=== PATIENT | female | born 1955 | race Caucasian/White ===

== ENCOUNTER 2022-03-05 08:38 | Inpatient (IN) | payer OTHER ==
[~2022-03-05] VITALS: Ht 157.5 cm; Wt 70.1 kg
[~2022-03-05 08:38] MED LIST: AMLO2.5T2 PO; ATEN-73 PO; INSLAN SQ; INSU100I3 SQ; PRAV40TA3 PO; VICOT PO
[2022-03-05] MEDS ORDERED: ASPIRIN 325 MG TABLET PO ONE (09:00)
[2022-03-05] MEDS ORDERED: NITROGLYCERIN 0.4 MG SUBLINGUAL TABLET #25 SL ONE (09:00)
[2022-03-05] MEDS ORDERED: MORPHINE SULFATE 4 MG/ML SYRINGE IVP ONE (09:00)
[2022-03-05] MEDS ORDERED: ONDANSETRON HCL 4 MG/2 ML VIAL IVP ONE (09:00)
[2022-03-05] MEDS ORDERED: NITROGLYCERIN 2% (1 GM=INCH) PACKET TP ONE (09:00)
[2022-03-05 09:10] LABS: BASOPHILS % (AUTO) 0.5 % (0.0-2.0); EOSINOPHILS % (AUTO) 0.6 % (1.0-6.0); HEMATOCRIT 34.9 % (36-46); HEMOGLOBIN 11.4 g/dL (12.0-16.0); LYMPHOCYTES # (AUTO) 2.7 K/uL (1.0-4.8); LYMPHOCYTES % (AUTO) 15.5 % (22.0-44.0); MEAN CORPUSCULAR HEMOGLOBIN 26.3 pg (26.0-34.0); MEAN CORPUSCULAR HGB CONC 32.6 G/dL (31.0-37.0); MEAN CORPUSCULAR VOLUME 81 fL (80-100); MONOCYTES # (AUTO) 2.2 K/uL (0.1-1.0); MONOCYTES % (AUTO) 12.8 % (2.0-9.0); NEUTROPHILS # (AUTO) 12.1 K/uL (1.8-7.7); NEUTROPHILS % (AUTO) 70.6 % (40.0-70.0); PLATELET COUNT (AUTO) 203 K/uL (150-450); RED BLOOD CELL COUNT(AUTO) 4.33 MIL/uL (4.00-5.20); RED CELL DISTRIBUTION WIDTH 14.8 % (11.5-14.5)
[2022-03-05 09:35] LABS: ANION GAP 8 mmol/L (8-16); CARBON DIOXIDE 29 mmol/L (22-29); CHLORIDE 99 mmol/L (98-107); CREATININE 0.76 mg/dL (0.60-1.30); GLOMERULAR FILTR. RATE CALC > 60 mL/min (>60); GLUCOSE,RANDOM 214 mg/dL (70-110); POTASSIUM 3.9 mmol/L (3.5-5.1); SODIUM SERUM 136 mmol/L (136-145); UREA NITROGEN, BLOOD 15 mg/dL (7-18)
[2022-03-05 09:36] LABS: COVID AG,FIA SOURCE NASOPHARYNGEAL
[2022-03-05 09:43] LABS: ALANINE AMINOTRANSFERASE 22 U/L (12-78); ALBUMIN 3.2 g/dL (3.4-5.0); ALKALINE PHOSPHATASE 72 U/L (46-116); ASPARTATE AMINOTRANSFERASE 16 U/L (15-37); BILIRUBIN,TOTAL 0.7 mg/dL (0.1-1.0); LIPASE 143 U/L (73-393)
[2022-03-05 10:37] LABS: APPEARANCE,URINE HAZY (CLEAR); BILIRUBIN,URINE NEGATIVE (NEGATIVE); GLUCOSE, URINE (UA) 150-200 mg/dL (NEGATIVE); LEUKOCYTE ESTERASE ,URINE LARGE (NEGATIVE); NITRATE,URINE POSITIVE (NEGATIVE); OCCULT BLOOD,URINE SMALL (NEGATIVE); PROTEIN,URINE TRACE mg/dL (NEGATIVE); SPECIFIC GRAVITIY, URINE 1.018 (1.003-1.030)
[2022-03-05 10:44] LABS: WBC,URINE 51-100 /HPF (0-5)
[2022-03-05 10:45] LABS: BACTERIA,URINE Many /HPF (None Seen); SQUAMOUS EPITHELIAL CELL,UR Few /LPF (None Seen)
[2022-03-05] MEDS ORDERED: CefTRIAXone 1 GM/DEXTROSE 50 ML IV ONE (11:30)
[2022-03-05] MEDS ORDERED: NITROGLYCERIN 0.4 MG SUBLINGUAL TABLET #25 SL PRN (12:45)
[2022-03-05] MEDS ORDERED: ZOLPIDEM TARTRATE 5 MG TABLET PO PRN (13:15)
[2022-03-05] MEDS ORDERED: ACETAMINOPHEN 325 MG TABLET PO PRN (13:15)
[2022-03-05] MEDS ORDERED: DEXTROSE 50%-WATER 25 GM/50 ML SYRINGE IVP PRN (13:15)
[2022-03-05] MEDS ORDERED: MAGNESIUM HYDROXIDE SUSPENSION 30 ML UDCUP PO PRN (13:15)
[2022-03-05] MEDS ORDERED: BISACODYL 10 MG RECTAL RECTAL SUPPOSITORY PR PRN (13:15)
[2022-03-05 13:22] VITALS: BP 113/68
[2022-03-05 14:53] VITALS: BP 132/61
[2022-03-05] MEDS: MORPHINE SULFATE 2 MG/ML SYRINGE IVP PRN ×2 (15:38→22:15)
[2022-03-05] MEDS: ONDANSETRON HCL 4 MG/2 ML VIAL IVP PRN (15:38)
[2022-03-05] MEDS: HEPARIN SODIUM,PORCINE 5,000 UNITS/ML VIAL SQ SCH ×2 (16:00→23:50)
[2022-03-05 18:51] LABS: GLUCOMETER DEV NAME(LOC) 5N.1C; GLUCOSE,POINT OF CARE 169 MG/DL (70-110)
[2022-03-05 19:40] VITALS: BP 103/51
[2022-03-05] MEDS: DOCUSATE SODIUM 100 MG CAPSULE PO SCH (21:00)
[2022-03-05] MEDS: INSULIN GLARGINE,HUM.REC.ANLOG 100 UNITS/ML SQ SCH (21:00)
[2022-03-05] MEDS: METOPROLOL TARTRATE 25 MG TABLET PO SCH (21:00)
[2022-03-06] VITALS (7 sets, daily range): BP systolic 96–137; BP diastolic 56–87
[2022-03-06] MEDS ORDERED: SODIUM CHLORIDE 0.9% 100 ML ONE (03:42)
[2022-03-06] MEDS ORDERED: IOHEXOL 350 MG/ML 100 ML VIAL ONE (03:43)
[2022-03-06] MEDS: MORPHINE SULFATE 2 MG/ML SYRINGE IVP PRN (03:49)
[2022-03-06 07:36] LABS: CHOLESTEROL 182 mg/dL (131-200); HDL CHOLESTEROL 45 mg/dL (40-60); LDL CHOL (CALC.) 107 mg/dL (0-130); TRIGLYCERIDES 148 mg/dL (15-150)
[2022-03-06] MEDS ORDERED: REGADENOSON 0.4 MG/5 ML PF SYRINGE IVP ONE (09:30)
[2022-03-06] MEDS ORDERED: SESTAMIBI TC99M/UD ISOTOPE 1 EA INJ INJ ONE ×2 (10:00→14:00)
[2022-03-06] MEDS: DOCUSATE SODIUM 100 MG CAPSULE PO SCH ×2 (10:52→20:12)
[2022-03-06] MEDS: ASPIRIN 81 MG DR TABLET PO SCH (10:52)
[2022-03-06] MEDS: PANTOPRAZOLE SODIUM 40 MG DR TABLET PO SCH (10:52)
[2022-03-06] MEDS: HEPARIN SODIUM,PORCINE 5,000 UNITS/ML VIAL SQ SCH ×2 (10:52→16:57)
[2022-03-06] MEDS: ATORVASTATIN CALCIUM 40 MG TABLET PO SCH (10:53)
[2022-03-06] MEDS: METOPROLOL TARTRATE 25 MG TABLET PO SCH ×2 (10:53→20:12)
[2022-03-06 11:54] LABS: ANION GAP 10 mmol/L (8-16); CARBON DIOXIDE 26 mmol/L (22-29); CHLORIDE 102 mmol/L (98-107); CREATININE 0.78 mg/dL (0.60-1.30); GLOMERULAR FILTR. RATE CALC > 60 mL/min (>60); GLUCOSE,RANDOM 136 mg/dL (70-110); POTASSIUM 4.6 mmol/L (3.5-5.1); SODIUM SERUM 138 mmol/L (136-145); UREA NITROGEN, BLOOD 15 mg/dL (7-18)
[2022-03-06 12:02] LABS: GLUCOMETER DEV NAME(LOC) 5S.2B; GLUCOSE,POINT OF CARE 127 MG/DL (70-110)
[2022-03-06] MEDS: INSULIN LISPRO 100 UNITS/ML SQ PRN ×2 (12:09→20:11)
[2022-03-06] MEDS: CefTRIAXone 1 GM/DEXTROSE 50 ML IV SCH (12:11)
[2022-03-06] MEDS ORDERED: SODIUM CHLORIDE 0.9% 500 ML IV ONE (12:17)
[2022-03-06 14:19] LABS: BASOPHILS % (AUTO) 0.5 % (0.0-2.0); EOSINOPHILS % (AUTO) 0.8 % (1.0-6.0); HEMATOCRIT 32.3 % (36-46); HEMOGLOBIN 10.6 g/dL (12.0-16.0); LYMPHOCYTES # (AUTO) 1.7 K/uL (1.0-4.8); LYMPHOCYTES % (AUTO) 14.8 % (22.0-44.0); MEAN CORPUSCULAR HEMOGLOBIN 26.5 pg (26.0-34.0); MEAN CORPUSCULAR HGB CONC 32.7 G/dL (31.0-37.0); MEAN CORPUSCULAR VOLUME 81 fL (80-100); MONOCYTES # (AUTO) 1.3 K/uL (0.1-1.0); MONOCYTES % (AUTO) 11.7 % (2.0-9.0); NEUTROPHILS # (AUTO) 8.1 K/uL (1.8-7.7); NEUTROPHILS % (AUTO) 72.2 % (40.0-70.0); PLATELET COUNT (AUTO) 213 K/uL (150-450); RED BLOOD CELL COUNT(AUTO) 3.98 MIL/uL (4.00-5.20); RED CELL DISTRIBUTION WIDTH 14.5 % (11.5-14.5)
[2022-03-06] MEDS: HYDROCODONE/ACETAMINOPHEN 5-325 MG TABLET PO PRN ×2 (15:23→20:18)
[2022-03-06 20:06] LABS: GLUCOMETER DEV NAME(LOC) 5N.1C; GLUCOSE,POINT OF CARE 145 MG/DL (70-110)
[2022-03-06 20:06] LABS: GLUCOMETER DEV NAME(LOC) 5N.1C; GLUCOSE,POINT OF CARE 216 MG/DL (70-110)
[2022-03-06] MEDS: INSULIN GLARGINE,HUM.REC.ANLOG 100 UNITS/ML SQ SCH (20:09)
[2022-03-06 20:21] LABS: GLUCOMETER DEV NAME(LOC) 5N.3; GLUCOSE,POINT OF CARE 172 MG/DL (70-110)
[2022-03-07 00:18] VITALS: BP 123/66
[2022-03-07] MEDS: HEPARIN SODIUM,PORCINE 5,000 UNITS/ML VIAL SQ SCH ×3 (00:48→17:29)
[2022-03-07] MEDS: MORPHINE SULFATE 2 MG/ML SYRINGE IVP PRN ×4 (00:49→20:36)
[2022-03-07 04:04] VITALS: BP 134/55
[2022-03-07] MEDS: INSULIN LISPRO 100 UNITS/ML SQ PRN ×3 (06:15→20:41)
[2022-03-07 06:47] LABS: GLUCOMETER DEV NAME(LOC) 5N.1C; GLUCOSE,POINT OF CARE 194 MG/DL (70-110)
[2022-03-07 07:47] VITALS: BP 145/73
[2022-03-07] MEDS: DOCUSATE SODIUM 100 MG CAPSULE PO SCH ×3 (08:28→20:50)
[2022-03-07] MEDS: ASPIRIN 81 MG DR TABLET PO SCH ×2 (08:29→09:00)
[2022-03-07] MEDS: PANTOPRAZOLE SODIUM 40 MG DR TABLET PO SCH ×2 (08:29→09:00)
[2022-03-07] MEDS: METOPROLOL TARTRATE 25 MG TABLET PO SCH ×3 (08:29→20:36)
[2022-03-07] MEDS: ATORVASTATIN CALCIUM 40 MG TABLET PO SCH ×2 (08:29→09:00)
[2022-03-07] MEDS: ONDANSETRON HCL 4 MG/2 ML VIAL IVP PRN (10:49)
[2022-03-07 11:48] VITALS: BP 146/82
[2022-03-07 11:57] LABS: GLUCOMETER DEV NAME(LOC) 5N.3; GLUCOSE,POINT OF CARE 145 MG/DL (70-110)
[2022-03-07] MEDS: CefTRIAXone 1 GM/DEXTROSE 50 ML IV SCH (11:57)
[2022-03-07 15:43] VITALS: BP 128/70
[2022-03-07 19:13] VITALS: BP 130/74
[2022-03-07 19:51] LABS: GLUCOMETER DEV NAME(LOC) 5N.1C; GLUCOSE,POINT OF CARE 275 MG/DL (70-110)
[2022-03-07] MEDS: PANTOPRAZOLE SODIUM 40 MG/VIAL IVP SCH (20:35)
[2022-03-07] MEDS: INSULIN GLARGINE,HUM.REC.ANLOG 100 UNITS/ML SQ SCH (20:51)
[2022-03-07 23:05] LABS: GLUCOMETER DEV NAME(LOC) 5N.3; GLUCOSE,POINT OF CARE 167 MG/DL (70-110)
[2022-03-08 00:23] VITALS: BP 130/75
[2022-03-08 04:05] VITALS: BP 137/67
[2022-03-08] MEDS: MORPHINE SULFATE 2 MG/ML SYRINGE IVP PRN (06:28)
[2022-03-08 07:43] VITALS: BP 150/77
[2022-03-08] MEDS: HEPARIN SODIUM,PORCINE 5,000 UNITS/ML VIAL SQ SCH ×3 (08:00→09:35)
[2022-03-08 08:21] LABS: BASOPHILS % (AUTO) 0.6 % (0.0-2.0); EOSINOPHILS % (AUTO) 1.3 % (1.0-6.0); HEMATOCRIT 34.7 % (36-46); HEMOGLOBIN 11.5 g/dL (12.0-16.0); LYMPHOCYTES # (AUTO) 1.6 K/uL (1.0-4.8); LYMPHOCYTES % (AUTO) 16.6 % (22.0-44.0); MEAN CORPUSCULAR HEMOGLOBIN 26.5 pg (26.0-34.0); MEAN CORPUSCULAR VOLUME 80 fL (80-100); MONOCYTES # (AUTO) 1.1 K/uL (0.1-1.0); MONOCYTES % (AUTO) 12.2 % (2.0-9.0); NEUTROPHILS # (AUTO) 6.5 K/uL (1.8-7.7); NEUTROPHILS % (AUTO) 69.3 % (40.0-70.0); PLATELET COUNT (AUTO) 237 K/uL (150-450); RED BLOOD CELL COUNT(AUTO) 4.32 MIL/uL (4.00-5.20); RED CELL DISTRIBUTION WIDTH 14.1 % (11.5-14.5)
[2022-03-08 08:28] LABS: ANION GAP 8 mmol/L (8-16); CALCIUM, TOTAL 9.2 mg/dL (8.8-10.5); CARBON DIOXIDE 30 mmol/L (22-29); CHLORIDE 101 mmol/L (98-107); CREATININE 0.71 mg/dL (0.60-1.30); GLOMERULAR FILTR. RATE CALC > 60 mL/min (>60); GLUCOSE,RANDOM 171 mg/dL (70-110); POTASSIUM 4.3 mmol/L (3.5-5.1); SODIUM SERUM 139 mmol/L (136-145); UREA NITROGEN, BLOOD 10 mg/dL (7-18)
[2022-03-08] MEDS ORDERED: MEBROFENIN TC99M/MCL ISOTOPE 1 EA INJ INJ ONE (08:30)
[2022-03-08 08:34] LABS: ALANINE AMINOTRANSFERASE 19 U/L (12-78); ALBUMIN 2.8 g/dL (3.4-5.0); ALKALINE PHOSPHATASE 94 U/L (46-116); ASPARTATE AMINOTRANSFERASE 17 U/L (15-37); BILIRUBIN,TOTAL 0.3 mg/dL (0.1-1.0); TOTAL PROTEIN, SERUM 8.1 g/dL (6.4-8.2)
[2022-03-08] MEDS: ASPIRIN 81 MG DR TABLET PO SCH (09:00)
[2022-03-08] MEDS: METOPROLOL TARTRATE 25 MG TABLET PO SCH (09:34)
[2022-03-08] MEDS: ATORVASTATIN CALCIUM 40 MG TABLET PO SCH (09:34)
[2022-03-08] MEDS: DOCUSATE SODIUM 100 MG CAPSULE PO SCH (09:34)
[2022-03-08] MEDS: ONDANSETRON HCL 4 MG/2 ML VIAL IVP PRN (09:34)
[2022-03-08] MEDS: PANTOPRAZOLE SODIUM 40 MG DR TABLET PO SCH (09:34)
[2022-03-08] MEDS: HYDROCODONE/ACETAMINOPHEN 5-325 MG TABLET PO PRN (09:35)
[2022-03-08] MEDS: PANTOPRAZOLE SODIUM 40 MG/VIAL IVP SCH (09:42)
[2022-03-08 10:43] VITALS: BP 142/68
[2022-03-08] MEDS: CefTRIAXone 1 GM/DEXTROSE 50 ML IV SCH (12:12)
[2022-03-08 22:21] LABS: GLUCOMETER DEV NAME(LOC) 5S.1B; GLUCOSE,POINT OF CARE 145 MG/DL (70-110)
[2022-03-08 22:21] LABS: GLUCOMETER DEV NAME(LOC) 5S.1B; GLUCOSE,POINT OF CARE 176 MG/DL (70-110)
[2022-03-09] MEDS ORDERED: ISOSORBIDE MONONITRATE 30 MG ER TABLET PO SCH (09:00)
== END 2022-03-08 13:40 | disposition left against medical advice (07) | DRG 311 ==
LOC: EMS 08:47 → 5S 12:00
PROVIDERS: ADMIT Internal Medicine; ATTEND Internal Medicine
DX: I24.9 Acute ischemic heart disease, unspecified (principal); N39.0 Urinary tract infection, site not specified; E11.65 Type 2 diabetes mellitus with hyperglycemia; I10 Essential (primary) hypertension; I45.10 Unspecified right bundle-branch block; Z20.822 Contact with and (suspected) exposure to COVID-19; K82.4 Cholesterolosis of gallbladder; Z53.29 Procedure and treatment not carried out because of patient's decision for other reasons; E78.5 Hyperlipidemia, unspecified; Z86.73 Personal history of transient ischemic attack (TIA), and cerebral infarction without residual deficits; Z82.49 Family history of ischemic heart disease and other diseases of the circulatory system; I25.2 Old myocardial infarction
CPT/HCPCS: 71045; 71260; 72193; 74160; 76700; 78226; 78452; 80048; 80053; 80061; 81001; 82962; 83036; 83690; 83880; 84484; 85025; 85379; 87086; 93005; 93306; 99285; A9500; A9537; C9113; G0378; J0696; J1644; J1815; J2270; J2405; J7040; J7050; Q9967; 36415-L1; 36415-TC